=== PATIENT | male | born 1945 | race American Indian/Alaskan Native ===

== ENCOUNTER 2017-08-13 13:18 | Day surgery (SDC) | payer MEDICARE, OTHER ==
--- NOTE | 2017-08-13 14:21 | Anesthesia Day of Surgery ---
Anesthesia Day of Surgery - Day of Surgery Patient Examined: Yes Patient H&P Reviewed: Yes Patient is NPO: Yes
--- NOTE | 2017-08-13 14:22 | Anesthesia Consultation ---
Anesthesia Consult and Med Hx Date of service: 08/13/17 - Airway Anesthetic Teeth Evaluation: Poor (loose top front tooth) ROM Head & Neck: Adequate Mental/Hyoid Distance: Adequate Mallampati Class: Class I Intubation Access Assessment: Good - Pulmonary Exam CTA: Yes - Cardiac Exam Cardiac Exam: RRR - Pre-Operative Health Status ASA Pre-Surgery Classification: ASA3 Proposed Anesthetic Plan: General - Pulmonary Hx Smoking: Yes (STOPPED 2004- PPD X 35 YRS) Hx Asthma: No SOB: Yes (SOB WITH EXCERISE) COPD: Yes (DAILY INHALERS) Hx Sleep Apnea: No (NORMA PRE SCREEN HIGH RISK) - Cardiovascular System Hx Hypertension: Yes (1973) Hx Heart Murmur: Yes - Central Nervous System CVA: No Hx Back Pain: Yes (NECK AND BACK PAIN) - Gastrointestinal Hx Gastroesophageal Reflux Disease: No - Endocrine Hx Renal Disease: No Hx Non-Insulin Dependent Diabetes: Yes (Off meds x 6 years) - Other Systems Hx Alcohol Use: Yes (DAILY WINE (3-4 GLASSES QD)) Hx Substance Use: No Hx Cancer: Yes (Prostate CA s/p radiation) Hx Obesity: Yes (BMI= 33)
[2017-08-13] MEDS ORDERED: NACL 0.9% 1000 ML 1,000 ML IV SCH (14:23)
[2017-08-13] MEDS ORDERED: PEPCID IV NR (14:23)
[2017-08-13] MEDS ORDERED: ANCEF/STERILE WATER 2 GM/20 ML IV NR (14:35)
[2017-08-13 14:41] LABS: Basophils % (Auto) 0.2 % (0.0-1.8); Eosinophils % (Auto) 0.7 % (0.0-4.3); Hematocrit 41.9 % (35.5-45.6); Hemoglobin 13.8 gm/dl (11.8-15.2); Mean Corpuscular HGB Conc 33 % (32-34); Mean Corpuscular Hemoglobin 30 pg (28-32); Mean Corpuscular Volume 92 fl (84-94); Platelet Count 124 K/mm3 (140-440); Red Blood Count 4.57 M/mm3 (3.65-5.03); Red Cell Distribution Width 14.1 % (13.2-15.2); White Blood Count 3.9 K/mm3 (4.5-11.0)
[2017-08-13] MEDS ORDERED: XYLOCAINE MPF 2% ONE (16:23)
[2017-08-13] MEDS ORDERED: SUBLIMAZE ONE (16:23)
[2017-08-13] MEDS ORDERED: DIPRIVAN 10 MG/ML IV ONE (16:24)
[2017-08-13] MEDS ORDERED: WATER FOR IRRIG STERILE IR ONE (17:00)
[2017-08-13] MEDS ORDERED: ZOFRAN ONE (17:19)
--- NOTE | 2017-08-13 17:22 | Short Stay Summary ---
Short Stay Documentation Date of service: 08/06/17 - History H&P: obtained from office - Allergies and Medications Current Medications: Allergies No Known Allergies Allergy (Verified 08/06/17 17:21) Home Medications Medication Instructions Recorded Confirmed Last Taken Type Hydralazine HCl [hydrALAZINE] 50 mg PO TID 03/22/15 08/06/17 08/13/17 10:00 History Tamsulosin [Flomax] 0.4 mg PO QDAY 03/22/15 08/06/17 08/12/17 History Valsartan [Diovan] 320 mg PO QDAY 03/22/15 08/06/17 08/13/17 10:00 History Verapamil ER [Calan Sr] 240 mg PO DAILY 03/22/15 08/06/17 08/13/17 10:00 History Aspirin EC 81 mg PO DAILY 03/29/15 08/13/17 08/04/17 History ALBUTEROL Inhaler [Proair] 2 puff IH QID PRN 08/06/17 08/13/17 08/13/17 10:00 History AtorvaSTATin [Lipitor] 40 mg PO QHS 08/06/17 08/06/17 08/12/17 History Fluticasone [Flonase] 1 spray NS QDAY 08/06/17 08/13/17 08/12/17 23:00 History Fluticasone/Salmeterol [Advair 1 puff IH BID 08/06/17 08/13/17 08/13/17 10:00 History Diskus 250-50 mcg] Montelukast [Singulair] 10 mg PO QPM 08/06/17 08/13/17 08/12/17 18:30 History Omeprazole Magnesium [PriLOSEC Otc] 20 mg PO QDAY 08/06/17 08/06/17 08/12/17 History Active Medications Cefazolin Sodium (Ancef/Sterile Water 2 Gm/20 Ml) 2 gm IV PREOP NR Stop: 08/13/17 23:59 Famotidine (Pepcid) 20 mg IV PREOP NR Stop: 08/13/17 23:59 Last Admin: 08/13/17 14:49 Dose: 20 mg Sodium Chloride (Nacl 0.9% 1000 Ml) 1,000 mls @ 75 mls/hr IV DIRECT MIGUEL ANGEL Last Admin: 08/13/17 14:45 Dose: 75 mls/hr - Brief post op/procedure progress note Date of procedure: 08/13/17 Pre-op diagnosis: bladder lesion Post-op diagnosis: same Procedure: cysto, dviu, bx bladdr lesion Anesthesia: GETA Surgeon: YOUNG MITCHELL Pathology: list (bladder lesion) Condition: stable - Hospital course Hospital course: cipro & carlottaco on chart - Disposition Condition at discharge: Stable Disposition: DC-01 TO HOME OR SELFCARE Short Stay Discharge Plan Follow up with: MANISHA LEW MD [Primary Care Provider] - 7 Days
[2017-08-13 18:38] VITALS: BP 145/87
[2017-08-13] MEDS ORDERED: NORCO 5/325 PO ONE (19:00)
--- NOTE | 2017-08-13 22:15 | Operative Report ---
PREOPERATIVE DIAGNOSIS: Bladder lesion. POSTOPERATIVE DIAGNOSES: Bladder lesion. PROCEDURE PERFORMED: Cystoscopy and also he has postoperative urethral stricture. PROCEDURE: Cystoscopy, direct vision internal urethrotomy, left retrograde pyelogram, bladder biopsy and fulguration x 2. SURGEON: Clayton Escalante MD ANESTHESIA: General. ESTIMATED BLOOD LOSS: Minimal. FLUIDS: Crystalloid. COMPLICATIONS: No complications. INDICATIONS: This patient is a 72-year-old gentleman seen by Dr. Lovell in the office. Surveillance cystoscopy revealed a small bladder lesion. He presents now for intervention. DESCRIPTION OF PROCEDURE: The patient was taken to the operative suite, placed in a supine position. After adequate general anesthesia, he was prepped and draped in a sterile fashion. Ureteroscopy was performed. Tight bulbar urethral stricture could be appreciated, wire was placed, cold knife was used to cut at the 12 o'clock position. A 22-[place] cystoscope was then advanced into the bladder. Left ureteral orifice could be appreciated. Left retrograde pyelogram was obtained with an 8 [place] catheter and 8 mL of contrast. No filling defects or obstruction, could not see the right side due to some mild trabeculation. Small erythematous area in the left side wall was biopsied x 2 and fulgurated. No tumors or obvious stones could be appreciated. A 16-[place] tip catheter was advanced over the wire. Rectal exam was benign. He was extubated and taken to the recovery room. He will go home with the [place] catheter [place] and [place] and follow up in the office. JOB# [id number] [facility]
--- NOTE | 2017-08-14 08:58 | Fluoroscopy Report ---
Left retrograde pyelogram. History: Bladder cancer. Findings: The left side is opacified. The left pelvicalyceal system and ureter are unremarkable. Minimal tortuosity of the distal left ureter has an identical appearance compared to the study and March of 2015. No filling defects are seen. Impression: No significant findings.
== END 2017-08-13 19:30 | disposition home or self-care (01) ==
LOC: OR 13:18
PROVIDERS: ATTEND Urology
DX: N32.89 Other specified disorders of bladder (principal); N35.9 Urethral stricture, unspecified; I10 Essential (primary) hypertension; M19.90 Unspecified osteoarthritis, unspecified site; E10.9 Type 1 diabetes mellitus without complications; Z72.89 Other problems related to lifestyle; E66.9 Obesity, unspecified; Z68.33 Body mass index [BMI] 33.0-33.9, adult; Z85.46 Personal history of malignant neoplasm of prostate; Z79.899 Other long term (current) drug therapy; Z79.82 Long term (current) use of aspirin; Z87.891 Personal history of nicotine dependence; Z85.51 Personal history of malignant neoplasm of bladder
CPT/HCPCS: 36415; 52204; 52276; 74420; 82962; 85025; 88305; A4217; C1758; C1769; J0690; J2405; J2704; J3010; J7030; Q9967